=== PATIENT | male | born 1975 | race Caucasian/White ===

== ENCOUNTER 2020-09-04 00:46 | Inpatient (IN) | payer BC ==
[2020-09-04] MEDS ORDERED: Morphine 4 MG/ML VIAL ONE ×2 (01:24→02:40)
[2020-09-04] MEDS ORDERED: Sodium Chloride 0.9% 1,000 ML IV SCH (03:45)
[2020-09-04] MEDS ORDERED: Morphine 2 MG/ML VIAL SLOW IVP PRN ×2 (03:59→04:01)
[2020-09-04] MEDS ORDERED: hydrALAZINE 20 MG/ML VIAL SLOW IVP PRN (04:06)
[2020-09-04] MEDS ORDERED: methylPREDNISolone Sod Succ/PF 125 MG/2 ML VIAL IVP SCH ×2 (04:15→09:00)
[2020-09-04 04:19] VITALS: BMI 37.7
[2020-09-04] MEDS: Sodium Chloride 0.9% 1,000 ML IV SCH ×3 (04:19→21:59)
[2020-09-04] MEDS: metroNIDAZOLE 500 MG in Premix Bag 1 BAG IVPB SCH ×3 (04:26→20:53)
[2020-09-04] MEDS ORDERED: VANCOMYCIN 1.75 GM/350 ML BAG IVPB SCH ×2 (05:00→09:00)
[2020-09-04] MEDS ORDERED: Clindamycin/D5W 600 MG in Premix Bag 1 BAG IVPB SCH (06:00)
[2020-09-04] MEDS ORDERED: metroNIDAZOLE 500 MG in Premix Bag 1 BAG IVPB SCH (06:00)
[2020-09-04] MEDS: Vancomycin 1.5 GRAM/300 ML BAG 1.5 GM in Premix Bag 1 BAG IVPB SCH ×3 (06:02→21:53)
[2020-09-04] MEDS: Clindamycin/D5W 600 MG in Premix Bag 1 BAG IVPB SCH ×3 (08:18→19:49)
[2020-09-04] MEDS: Ketorolac Tromethamine 30 MG/ML VIAL IVP PRN (08:19)
[2020-09-04] MEDS: Enoxaparin Sodium 40 MG/0.4 ML SYRINGE SC SCH (08:19)
[2020-09-04] MEDS ORDERED: Lidocaine 1% PF 5 ML VIAL ONE (09:20)
[2020-09-04] MEDS ORDERED: Ondansetron PF 4 MG/2 ML Vial ONE (09:20)
[2020-09-04] MEDS ORDERED: PROPOFOL 200 MG/20 ML VIAL ONE (09:20)
[2020-09-04] MEDS ORDERED: Rocuronium Bromide 10 MG/ML (10ML VIAL) ONE (09:20)
[2020-09-04] MEDS ORDERED: Succinylcholine 200 MG/10 ml SYRINGE FS ONE (09:20)
[2020-09-04] MEDS ORDERED: Ketorolac Tromethamine 30 MG/ML VIAL ONE (09:20)
[2020-09-04] MEDS ORDERED: Dexamethasone 20 MG/5 ML VIAL ONE (09:20)
[2020-09-04] MEDS ORDERED: PHENYLEPHRINE-NS 100 MCG/ML 10 ML SYRINGE ONE (09:20)
[2020-09-04] MEDS ORDERED: Vancomycin 1.5 GRAM/300 ML BAG ONE (13:01)
[2020-09-04] MEDS ORDERED: Midazolam HCl 2 mg/2 ml Vial ONE (13:17)
[2020-09-04] MEDS ORDERED: Famotidine/PF 20 mg/2ml Vial ONE (13:18)
[2020-09-04] MEDS ORDERED: SUGAMMADEX SODIUM 200 MG/2 ML VIAL ONE ×2 (13:18→14:14)
[2020-09-04] MEDS ORDERED: Scopolamine 1.5 mg/72 hour Patch ONE (13:18)
[2020-09-04] MEDS ORDERED: Fentanyl 100 MCG/2 ML VIAL ONE (13:18)
[2020-09-04] MEDS ORDERED: Lidocaine 1% w/Epinephrine 1:100K 20 ML VIAL ONE (13:20)
[2020-09-04] MEDS ORDERED: Chlorhexidine Gluconate 15 ML UDCUP SSP ONE (13:20)
[2020-09-04] MEDS ORDERED: Hydrocortisone 1% Cream 30 GM TUBE ONE (13:20)
[2020-09-04] MEDS ORDERED: Clindamycin/D5W 600 mg/50 ml Premix Bag ONE (13:37)
[2020-09-04] MEDS ORDERED: Dexmedetomidine 200 MCG/2 ML VIAL ONE (13:44)
[2020-09-04] MEDS ORDERED: Naloxone HCl 0.4 mg/ml Vial ONE (15:07)
[2020-09-05] MEDS: Ketorolac Tromethamine 30 MG/ML VIAL IVP PRN (00:47)
[2020-09-05] MEDS: Clindamycin/D5W 600 MG in Premix Bag 1 BAG IVPB SCH ×2 (02:26→09:00)
[2020-09-05] MEDS: metroNIDAZOLE 500 MG in Premix Bag 1 BAG IVPB SCH ×2 (04:28→11:13)
[2020-09-05 04:30] LABS: #Lymphocytes 1.2 thou/uL (1.20-3.40); #Monocytes 0.8 thou/uL (0.11-0.59); %Eosinophils 0.1 % (0.0-10.0); %Lymphocytes 6.4 % (21.0-51.0); %Monocytes 4.3 % (0.0-10.0); %Neutrophils 89.2 % (42.0-75.0); Hemoglobin 13.1 g/dL (14.0-18.0); Mean Corpuscular HGB CONC 33.6 g/dL (32.0-36.0); Mean Corpuscular Hemoglobin 30.5 pg (27.0-31.0); Mean Corpuscular Volume 90.8 fL (78.0-98.0); Mean Platelet Volume 7.5 fL (7.4-10.4); Platelet Count 336 thou/uL (130-400); RBC Distribution Width 11.6 % (11.5-14.5); Red Blood Cell (RBC) Count 4.28 mill/uL (4.70-6.10); White Blood Cell (WBC) Count 17.9 thou/uL (4.8-10.8)
[2020-09-05 04:47] LABS: Vancomycin, Trough 21.1 ug/mL
[2020-09-05 04:48] LABS: Anion Gap 13 mmol/L (10-20); BUN (Urea Nitrogen) 18 mg/dL (8.9-20.6); Calc. Creatinine Clearance 185 mL/min (70-130); Calcium 7.9 mg/dL (7.8-10.44); Carbon Dioxide 21 mmol/L (22-29); Chloride 106 mmol/L (98-107); Glucose 142 mg/dL (70-105); Potassium 3.9 mmol/L (3.5-5.1); Sodium 136 mmol/L (136-145)
[2020-09-05] MEDS: Vancomycin 1.5 GRAM/300 ML BAG 1.5 GM in Premix Bag 1 BAG IVPB SCH (05:21)
[2020-09-05] MEDS ORDERED: VANCOMYCIN 1.25 GM/250 ML BAG 1.25 GM in Premix Bag 1 BAG IVPB SCH (06:00)
[2020-09-05] MEDS: Enoxaparin Sodium 40 MG/0.4 ML SYRINGE SC SCH (09:00)
[2020-09-05 11:57] VITALS: BP 144/94; TEMP 98.2
== END 2020-09-05 12:42 | disposition home or self-care (01) | DRG 138 ==
LOC: ERS 00:46 → SJJU 02:42
PROVIDERS: ADMIT Student in an Organized Health Care Education/Training Program; ATTEND Internal Medicine
PROC: 0J910ZZ Drainage of Face Subcutaneous Tissue and Fascia, Open Approach (ICD-10-PCS; principal; 2020-09-04)
PROC: 0CDXXZ0 Extraction of Lower Tooth, Single, External Approach (ICD-10-PCS; 2020-09-04)
DX: K12.2 Cellulitis and abscess of mouth (principal); I10 Essential (primary) hypertension; Z20.822 Contact with and (suspected) exposure to COVID-19; K02.9 Dental caries, unspecified; F41.9 Anxiety disorder, unspecified; F32.9 Major depressive disorder, single episode, unspecified; Z88.0 Allergy status to penicillin; Z82.49 Family history of ischemic heart disease and other diseases of the circulatory system
CPT/HCPCS: 36415; 80048; 80202; 85025; 93306; 96374; 96376; J1100; J1885; J2250; J2270; J2310; J2405; J2704; J2930; J3010; J3370; J3490; S0028